=== PATIENT | male | born 1965 | race Hispanic/Latino ===

== ENCOUNTER 2019-12-15 06:20 | Emergency (ER) | payer OTHER ==
[~2019-12-15] VITALS: Ht 180.3 cm; Wt 95.2 kg
--- OUTSIDE RECORDS SUMMARY | 2019-12-15 06:22 | XMS ---
PreManage Notification: JANNIE CHESTER Security Direct Response Consultant Events No recent Security Events currently on file [facility] There are no care providers on record at this time. [place] has no Care Guidelines for this patient. [place] VISIT COUNT (12 MO.) 1 NANCY Hunter TOTAL 1 NOTE: Visits indicate total known visits. ED/C VISIT TRACKING (12 MO.) 12/15/2019 06:21 NANCY Malcolm [place] TYPE: Emergency COMPLAINT: - CHEST PAIN INPATIENT VISIT TRACKING (12 MO.) No inpatient visits to display in this time frame [email or web address]
[2019-12-15] MEDS ORDERED: METOPROLOL SUCC25 MG PO (06:34)
[2019-12-15] MEDS ORDERED: GLUCOPHAGE500 MG PO (06:35)
[2019-12-15] MEDS ORDERED: WELLBUTRIN SR100 MG PO (06:35)
[2019-12-15] MEDS ORDERED: ASPIRIN81 MG PO (06:36)
[2019-12-15] MEDS ORDERED: RISPERIDONE O0.25 MG PO (06:38)
--- NOTE | 2019-12-16 16:35 | EKG ---
[facility] [address] [place], [place] [address] Signed Normal sinus rhythm Low voltage QRS Borderline ECG Confirmed by PETEY CARLIN DO ([id number]) on 12/16/2019 4:35:10 PM Electronically Signed By: PETEY CARLIN DO 12/16/19 1635 PATIENT NAME: JANNIE CHESTER Electrocardiogram DATE OF : 63 PHYSICIAN: PETEY CARLIN DO REPORT #: [id number] REPORT IS CONFIDENTIAL AND NOT TO BE RELEASED WITHOUT AUTHORIZATION
== END 2019-12-15 11:07 | disposition home or self-care (01) ==
LOC: ED 06:20
DX: R07.9 Chest pain, unspecified (principal); I25.2 Old myocardial infarction; I10 Essential (primary) hypertension; Z87.891 Personal history of nicotine dependence
CPT/HCPCS: 71045; 80053; 83735; 84484; 85025; 93005; 93010; 96374; 99285-25; J1200